=== PATIENT | female | born 1980 | race Caucasian/White ===

== ENCOUNTER 2017-01-06 05:05 | Inpatient (IN) | payer MEDICAID ==
[~2017-01-06] VITALS: Ht 144.8 cm; Wt 66.9 kg
[~2017-01-06 05:05] MED LIST: TRAM50TA2 PO
[2017-01-06 05:13] VITALS: Ht 144.8 cm; Wt 66.9 kg
[2017-01-06] MEDS ORDERED: CARBOPROST 250 MCG INJ IM PRN ×2 (05:30→14:30)
[2017-01-06] MEDS ORDERED: METHYLERGONOVINE 0.2 MG INJ IM PRN ×2 (05:30→14:30)
[2017-01-06] MEDS ORDERED: CEFAZOLIN 2 GM/50 ML (PMX) 50 ML IV SCH (05:30)
[2017-01-06] MEDS ORDERED: OXYTOCIN 30 UNITS/LR 500 ML IV PRN ×2 (05:30→14:30)
[2017-01-06] MEDS ORDERED: MISOPROSTOL 200 MCG TAB PR PRN ×2 (05:30→14:30)
[2017-01-06 05:52] LABS: ADD SCAN DIFF NO
[2017-01-06] MEDS: LACTATED RINGER'S 1,000 ML IV SCH ×2 (06:06→07:24)
[2017-01-06 06:16] LABS: INR 0.9; PROTIME 12.1 Sec (12.2-14.2); PT RATIO 0.9
[2017-01-06 06:17] LABS: PARTIAL THROMBOPLASTIN TIME 27.2 Sec (25.0-35.0)
[2017-01-06 06:20] LABS: ABNORMAL IP MESSAGE 1; BASOPHILS % 0.3 % (0.0-2.0); EOSINOPHILS % 0.4 % (0.0-7.0); HEMATOCRIT 26.7 % (37.0-47.0); HEMOGLOBIN 8.1 g/dl (12.0-16.0); LYMPHOCYTES # 2.2 10^3/ul (0.8-2.9); LYMPHOCYTES % 31.7 % (15.0-51.0); MEAN CORPUSCULAR HEMOGLOBIN 26.4 pg (29.0-33.0); MEAN CORPUSCULAR HGB CONC 30.3 g/dl (32.0-37.0); MONOCYTE # 0.5 10^3/ul (0.3-0.9); MONOCYTES % 6.6 % (0.0-11.0); NEUTROPHIL # 4.2 10^3/ul (1.6-7.5); NEUTROPHILS % 60.7 % (39.0-77.0); NUCLEATED RED BLOOD CELLS% 0.3 /100WBC (0.0-0.0); PLATELET COUNT 115 10^3/UL (140-415); RED BLOOD COUNT 3.07 10^6/ul (4.20-5.40); RED CELL DISTRIBUTION WIDTH 15.9 % (11.5-14.5); WHITE BLOOD COUNT 6.9 10^3/ul (4.8-10.8)
[2017-01-06] MEDS ORDERED: morphine SULFATE/PF (10 MG/10 ML) INJ ONE (08:04)
[2017-01-06] MEDS ORDERED: PHENYLephrine (100 MCG/ML) 5ML SYG ONE (08:04)
[2017-01-06] MEDS ORDERED: ONDANSETRON 4 MG INJ ONE ×2 (08:04→08:54)
[2017-01-06] MEDS ORDERED: OXYTOCIN 10 UNIT INJ ONE (08:04)
--- NOTE | 2017-01-06 08:32 | HP ---
Date/Time of Note Date/Time of Note DATE: 01/06/17 TIME: 08:23 OB - History Hx of Present Free Text/Dictation 36 years old female 5 para 3 history of 3 previous section one inducible with a EDC of January 11, 2017 admitted to [facility] at 39 weeks and 2 days for repeat section for the fourth time. This patient has been under the care of the [facility] and her was complicated with gestational diabetes and recently diagnosed mild -induced hypertension for that reason complete workup for PIH has been ordered plan pending the result if abnormal magnesium sulfate for seizure prevention will be considered Estimated Due Date: January 11, 2017 : 5 Para: 3 Therapeutic : 1 Care: Good Care Ultrasounds: Normal mid trimester US Obstetrical Complications: Gestational Diabetes, Pre-eclampsia Past Family/Social History * Past Medical, Surgical, Family and Obstetric Histories reviewed from chart. Rubella: immune RPR/VDRL: Negative GBS Status: Negative HBsAG: Negative OB Admission Exam Physical Exam HEENT: WNL Heart: Rhythm Normal Lungs: Clear, Equal Abdomen: WNL Extremities: Normal Reflexes: Normal Cervical Dilatation: None Effacement: 0% Station: -2 Membranes: Intact Heart Rate: 130's Accelerations: Accelerations Present Decelerations: No Decelerations Varibility: Moderate Contractions on Admission: None Last 72 hours Lab Results CBC & BMP 01/06/17 05:45 OB Assessment/Plan Reason for admission: section Plan: Section MARIANNA ALMARAZ MD January 06, 2017 08:32
[2017-01-06 08:50] LABS: ALBUMIN/GLOBULIN RATIO 0.93; BILIRUBIN,INDIRECT 0.2 mg/dl (0-1.1); BILIRUBIN,TOTAL 0.2 mg/dl (0.2-1.3); CALCIUM 8.1 mg/dl (8.4-10.2); CREATININE 0.62 mg/dl (0.44-1.00); POTASSIUM 3.8 mmol/L (3.5-5.1); TOTAL PROTEIN 6.2 g/dl (6.1-8.1); URIC ACID 5.2 mg/dl (3.1-7.9)
[2017-01-06] MEDS ORDERED: METOCLOPRAMIDE 10 MG INJ ONE (08:54)
[2017-01-06] MEDS ORDERED: FENTAnyl 50 MCG/ML VIAL ONE (08:55)
[2017-01-06 09:30] LABS: ADD UMIC YES; URINE BILIRUBIN (Dip) NEGATIVE (NEGATIVE); URINE BLOOD (Dip) 1+ (NEGATIVE); URINE COLOR LT. YELLOW (YELLOW); URINE GLUCOSE (Dip) NEGATIVE (NEGATIVE); URINE KETONES (Dip) NEGATIVE (NEGATIVE); URINE LEUKOCYTE ESTERASE (Dip) NEGATIVE (NEGATIVE); URINE NITRITE (Dip) NEGATIVE (NEGATIVE); URINE TOTAL PROTEIN (Dip) NEGATIVE (NEGATIVE); URINE UROBILINOGEN (Dip) 0.2 E.U./dL (0.1-1.0)
[2017-01-06] MEDS: OXYTOCIN 30 UNITS/LR 500 ML IV SCH ×5 (09:52→22:52)
[2017-01-06 10:00] LABS: BACTERIA,URINE RARE; URINE RBCS 0-2 /HPF (0)
[2017-01-06] MEDS ORDERED: morphine 2 MG INJ IV PRN (10:00)
[2017-01-06] MEDS ORDERED: DIPHENHYDRAMINE 50 MG INJ IV PRN (10:00)
[2017-01-06] MEDS ORDERED: NALOXONE (0.4 MG/ML) INJ IV PRN (10:00)
[2017-01-06] MEDS: KETOROLAC 30 MG INJ IV PRN (10:20)
[2017-01-06] MEDS: ONDANSETRON 4 MG INJ IV PRN ×2 (11:00→13:00)
--- NOTE | 2017-01-06 11:09 | OPR ---
DATE OF OPERATION: 01/06/2017 PREOPERATIVE DIAGNOSES: Intrauterine at 39 weeks and 2 days, history of 3 previous sections. POSTOPERATIVE DIAGNOSES: Intrauterine at 39 weeks and 2 days, history of 3 previous sections. OPERATION PERFORMED: Repeat transverse low cervical section for the 4th time. SURGEON: Marianna Boykin MD DATA DESIGNER: Sandra Perez MD ANESTHESIA: Spinal. ANESTHESIOLOGIST: Dr. Perez. FINDINGS: Live baby girl with 8 and 9. DETAILS OF THE PROCEDURE: Under satisfactory spinal anesthesia, the patient was prepped and draped and placed in supine position, tilted to the left. Pfannenstiel incision was made, incision carried through the subcutaneous tissue. Bleeders brought under control with electrocautery. Fascia incis ed to the length of the incision. Rectus muscle divided in midline. Peritoneum exposed, entered th rough a transverse incision. Exploration of abdomen, gravid uterus with extremely thinned out lower segment of the uterus to the thickness of 1 to 2 mm. Bladder flap was developed. Transverse incis ion was made in the lower segment of the uterus. Amniotic sac ruptured. Clear amniotic fluid noted . Live baby girl was delivered from unengaged vertex. Nasal oropharyngeal suction was performed. Baby handed to the team for immediate attention. The patient received 20 units of Pitocin. Placenta delivered manually intact. Uterine cavity cleaned with wet sponge and drainage establish ed. Uterus closed in 2 layers using Monocryl #1 in continuous fashion. Peritoneal cavity irrigated with warm saline. Sponge, needle and instrument reported to be correct. Abdominal peritoneum clos ed with 2-0 chromic catgut continuously. Rectus muscle approximated with few interrupted 2-0 chromi c catgut. Fascia closed with #1 PDS in a continuous fashion. Subcutaneous tissue approximated with few interrupted 2-0 chromic catgut. Skin closed with stormy. Estimated blood loss 600 mL. Urine bag contained 200 mL of clear urine. Patient tolerated procedure well, transferred to [facility] in a good condition. Dictated By: MARIANNA BOYKIN MD HF/NTS Conf#: [id number] DID#: [id number] CC: SANDRA PEREZ MD;*EndCC*
[2017-01-06] MEDS ORDERED: METOCLOPRAMIDE 10 MG INJ IV ONE (11:30)
[2017-01-06] MEDS ORDERED: CEFAZOLIN 1 GM/50 ML (PMX) 50 ML IVPB SCH ×2 (14:30→16:30)
[2017-01-06] MEDS ORDERED: OXYCODONE/ACETAMINOPHEN (5/325) TAB PO PRN (14:30)
[2017-01-06] MEDS ORDERED: LANOLIN 7 GM TUBE TOP PRN (14:30)
[2017-01-06] MEDS ORDERED: ACETAMINOPHEN/CODEINE #3 TAB PO PRN (14:30)
[2017-01-06 14:40] VITALS: BP 131/75; PULSE 52; RESP 16
[2017-01-06 16:00] VITALS: BP 136/69; PULSE 51; RESP 16
[2017-01-06 19:55] VITALS: BP 129/67; PULSE 69; RESP 19
[2017-01-06] MEDS: SENNA/DOCUSATE NA (8.6MG/50MG) TAB PO SCH (21:28)
[2017-01-07] VITALS (10 sets, daily range): BP systolic 110–130; BP diastolic 55–72; PULSE 53–67; RESP 17–20
[2017-01-07] MEDS: OXYTOCIN 30 UNITS/LR 500 ML IV SCH ×2 (02:04→05:58)
[2017-01-07] MEDS ORDERED: LACTATED RINGER'S 1,000 ML IV SCH (03:00)
[2017-01-07] MEDS: KETOROLAC 30 MG INJ IV PRN (07:58)
[2017-01-07 08:02] LABS: ADD SCAN DIFF NO
[2017-01-07 08:07] LABS: ABNORMAL IP MESSAGE 1; HEMATOCRIT 19.8 % (37.0-47.0); MEAN CORPUSCULAR HEMOGLOBIN 27.4 pg (29.0-33.0); MEAN CORPUSCULAR HGB CONC 31.3 g/dl (32.0-37.0); MEAN CORPUSCULAR VOLUME 87.6 fl (82.0-101.0); MEAN PLATELET VOLUME 13.1 fl (7.4-10.4); PLATELET COUNT 99 10^3/UL (140-415); RED BLOOD COUNT 2.26 10^6/ul (4.20-5.40)
[2017-01-07 08:18] LABS: HEMOGLOBIN 6.2 g/dl (12.0-16.0)
[2017-01-07] MEDS: SENNA/DOCUSATE NA (8.6MG/50MG) TAB PO SCH ×2 (09:18→21:17)
--- NOTE | 2017-01-07 09:51 | QN ---
Documentation Comment Post day 1 Afebrile vital signs are stable abdomen soft bowel sounds lochia moderate incision extremities ambulation recommended MARIANNA ALMARAZ MD January 07, 2017 09:51
--- NOTE | 2017-01-07 10:11 | QN ---
Documentation Comment This patient had a hemoglobin of 8gm on admission, hemoglobin went down to 6gm. hematocrit 19 .8 she looks pale, tired and lethargic transfusion benefits and risks discussed with the patient she agreed to receive the blood transfusion MARIANNA ALMARAZ MD January 07, 2017 10:11
[2017-01-07 11:16] LABS: LYMPHOCYTES # 1.1 10^3/ul (0.8-2.9); MONOCYTE # 0.1 10^3/ul (0.3-0.9); NEUTROPHIL # 7.4 10^3/ul (1.6-7.5)
[2017-01-07 11:17] LABS: MICROCYTOSIS 1+; POLYCHROMASIA 1+
[2017-01-07] MEDS: IBUPROFEN 600 MG TAB PO SCH ×3 (12:13→23:29)
[2017-01-07] MEDS: OXYCODONE/ACETAMINOPHEN (5/325) TAB PO PRN (17:17)
[2017-01-08] VITALS (17 sets, daily range): BP systolic 128–179; BP diastolic 55–96; PULSE 49–79; RESP 18–21
[2017-01-08] MEDS: IBUPROFEN 600 MG TAB PO SCH ×3 (06:05→17:24)
[2017-01-08 08:14] LABS: ADD SCAN DIFF NO
[2017-01-08] MEDS: ACETAMINOPHEN/CODEINE #3 TAB PO PRN ×2 (08:15→11:40)
[2017-01-08] MEDS: SENNA/DOCUSATE NA (8.6MG/50MG) TAB PO SCH ×2 (08:16→21:23)
[2017-01-08 08:27] LABS: ABNORMAL IP MESSAGE 1; BASOPHILS % 0.2 % (0.0-2.0); EOSINOPHILS # 0.1 10^3/ul (0.0-0.5); EOSINOPHILS % 0.6 % (0.0-7.0); HEMATOCRIT 33.4 % (37.0-47.0); HEMOGLOBIN 10.9 g/dl (12.0-16.0); LYMPHOCYTES # 1.7 10^3/ul (0.8-2.9); LYMPHOCYTES % 14.9 % (15.0-51.0); MEAN CORPUSCULAR HEMOGLOBIN 27.9 pg (29.0-33.0); MEAN CORPUSCULAR HGB CONC 32.6 g/dl (32.0-37.0); MEAN CORPUSCULAR VOLUME 85.4 fl (82.0-101.0); MEAN PLATELET VOLUME 13.5 fl (7.4-10.4); MONOCYTE # 0.7 10^3/ul (0.3-0.9); NEUTROPHIL # 8.7 10^3/ul (1.6-7.5); NEUTROPHILS % 77.7 % (39.0-77.0); PLATELET COUNT 112 10^3/UL (140-415); RED BLOOD COUNT 3.91 10^6/ul (4.20-5.40); RED CELL DISTRIBUTION WIDTH 15.9 % (11.5-14.5); WHITE BLOOD COUNT 11.2 10^3/ul (4.8-10.8)
[2017-01-08 14:22] LABS: WHITE BLOOD COUNT 8.7 10^3/ul (4.8-10.8)
[2017-01-08] MEDS: LABETALOL 100 MG TAB PO SCH (16:12)
[2017-01-08] MEDS: OXYCODONE/ACETAMINOPHEN (5/325) TAB PO PRN (23:04)
[2017-01-09] MEDS: IBUPROFEN 600 MG TAB PO SCH ×3 (00:19→14:17)
--- NOTE | 2017-01-09 01:13 | PN ---
Date/Time of Note Date/Time of Note DATE: 01/09/17 TIME: 01:12 OB Subjective Subjective Subjective afebrile vss abd.soft ns present no bm ext normal MARIANNA ALMARAZ MD January 09, 2017 01:13
[2017-01-09 04:06] VITALS: BP 149/72; PULSE 57; RESP 18
[2017-01-09 08:10] VITALS: BP 159/85; PULSE 54; RESP 20
[2017-01-09] MEDS: LABETALOL 100 MG TAB PO SCH (08:12)
[2017-01-09] MEDS: ACETAMINOPHEN/CODEINE #3 TAB PO PRN (08:13)
[2017-01-09] MEDS: SENNA/DOCUSATE NA (8.6MG/50MG) TAB PO SCH (08:13)
[2017-01-09] MEDS ORDERED: DIPHTH/TET/ACEL PERTUSS (ADULT) 0.5 ML VIAL IM* ONE (09:00)
[2017-01-09 09:41] VITALS: BP 153/74; PULSE 54; RESP 20
[2017-01-09 13:16] VITALS: BP 132/79; RESP 20
--- NOTE | 2017-01-09 14:09 | DS ---
Date/Time of Note Date/Time of Note DATE: 01/09/17 TIME: 14:09 Obstetrical Discharge Record Final Diagnosis Final Diagnosis: Term delivered Section Section: Repeat Condition on Discharge Physical Assessment Last Vitals: See PN Patient Condition: Stable MEGAN AUGUSTE January 09, 2017 14:09
--- NOTE | 2017-01-09 14:09 | PN ---
Date/Time of Note Date/Time of Note DATE: 01/09/17 TIME: 14:07 OB Subjective Subjective Subjective Patient without complaints. OB Objective Objective Objective Gen: NAD Abd: I-C/D/I with stormy OB Assessment/Plan Reason for admission: section Other Assessment: s/p repeat Other plan: POD3 -discharge home -pelvic rest, no heavy lifting -rx for pain meds -f/u with OB clinic for staple removal and care MEGAN AUGUSTE January 09, 2017 14:09
== END 2017-01-09 16:16 | disposition home or self-care (01) | DRG 766 ==
LOC: L-D 05:05 → PP1 14:52
PROVIDERS: ADMIT Obstetrics & Gynecology; ATTEND Obstetrics & Gynecology
PROC: 3E00X4Z Introduction of Serum, Toxoid and Vaccine into Skin and Mucous Membranes, External Approach (ICD-10-PCS; 2017-01-06)
PROC: 10D00Z1 Extraction of Products of Conception, Low, Open Approach (ICD-10-PCS; principal; 2017-01-06 07:30)
DX: O34.211 Maternal care for low transverse scar from previous cesarean delivery (principal); O14.04 Mild to moderate pre-eclampsia, complicating childbirth; O24.429 Gestational diabetes mellitus in childbirth, unspecified control; Z23 Encounter for immunization; Z3A.39 39 weeks gestation of pregnancy; Z37.0 Single live birth
CPT/HCPCS: 36430; 80053; 81001; 81003; 82962; 84560; 85025; 85610; 85730; 86592; 86850; 86900; 86901; 86920; 87340; 90715; 94760; 99464; J0690; J1200; J1885; J2274; J2370; J2405; J2590; J2765; J3010; J7120; P9016

== ENCOUNTER 2017-01-17 15:20 | Emergency (ER) | payer MEDICAID ==
[~2017-01-17] VITALS: Ht 152.4 cm; Wt 54.5 kg
[2017-01-17 15:22] VITALS: Ht 152.4 cm; Wt 54.5 kg
--- NOTE | 2017-01-17 16:51 | ERA ---
ER Documentation Chief Complaint Date/Time DATE: 01/17/17 TIME: 16:49 Chief Complaint sent by pcp - for evaluation , high bp HPI 36-year-old female who is 10 days status post who presents with elevated blood pressure lightheadedness and dizziness. She was sent from primary care physician for evaluation of elevated blood pressure. Patient denies any chest pain or shortness of breath. No numbness or tingling. Net Ui Developer used. ROS All systems reviewed and are negative except as per history of present illness. Medications Home Meds Active Scripts Tramadol HCl (Tramadol HCl) 50 Mg Tablet, 50 MG PO Q4 Y for PAIN, #10 TAB Prov:MIRIAM VOSS PA-C 03/22/16 Allergies Allergies: Coded Allergies: latex (Verified Allergy, Severe, rash, 01/06/17) No Known Allergies (Verified Allergy, Unknown, 01/05/17) PMhx/Soc History of Surgery: Yes ( x3) Anesthesia Reaction: No Hx Neurological Disorder: No Hx Respiratory Disorders: No Hx Cardiac Disorders: No Hx Psychiatric Problems: No Hx Miscellaneous Medical Probl: Yes (Gestational DM,Pre-Eclampsia,MRSA Skin Infection) Hx Alcohol Use: No Hx Substance Use: No Hx Tobacco Use: No FmHx Family History: No diabetes Physical Exam Vitals Vital Signs Date Time Temp Pulse Resp B/P Pulse Ox O2 Delivery O2 Flow Rate FiO2 01/17/17 15:22 98.0 75 19 176/95 99 Physical Exam General: Well developed, well nourished, no acute distress Head: Normocephalic, atraumatic. Eyes: Pupils equally reactive, EOM intact ENT: Moist mucous membranes Neck: Supple, no lymphadenopathy Respiratory: Lungs clear bilaterally, no distress Cardiovascular: RRR, no murmurs, rubs, or gallops Abdominal: Soft, non-tender, non-distended, no peritoneal signs : Deferred MSK: No edema, no unilateral swelling, 5/5 strength Neurologic: Alert and oriented, moving all extremities, normal speech, no focal weakness, no cerebellar signs Skin: No rash Psych: Normal mood Procedures/MDM MEDICAL DECISION MAKING: The patient presents to the emergency room with elevated blood pressure 10 days . This is very concerning and likely consistent with preeclampsia. I was immediately able to speak to Dr. Lechuga, on-call for labor and delivery. We discussed the case. I was about to initiate therapy but she states that the patient should be taken directly to L&D triage. I believe this is the best course of management for this patient with likely preeclampsia who requires close observation, magnesium, blood pressure control. The patient was emergently taken to L&D triage. I kept the patient and/or family informed of laboratory and diagnostic imaging results throughout the emergency room course. DISPOSITION PLAN: L&D triage for management of preeclampsia CONSULTATION: Accepting provider is Dr. Lechuga Departure Diagnosis: Primary Impression: Preeclampsia Qualified Code: O14.90 - Preeclampsia, unspecified trimester Condition: CHANELLE Curry MD January 17, 2017 16:51
== END 2017-01-17 17:43 | disposition home or self-care (01) ==
LOC: FTE 15:20
DX: O14.95 Unspecified pre-eclampsia, complicating the puerperium (principal)
CPT/HCPCS: 99282

== ENCOUNTER 2017-01-17 17:10 | Inpatient (IN) | payer MEDICAID ==
[~2017-01-17] VITALS: Ht 149.9 cm; Wt 54.5 kg
[2017-01-17 17:42] VITALS: BP 159/89; PULSE 50; RESP 16; Ht 149.9 cm; Wt 54.5 kg
[2017-01-17] MEDS ORDERED: CA GLUCONATE (GM) 10% 10ML INJ IV PRN (18:00)
[2017-01-17] MEDS ORDERED: MAGNESIUM SULFATE 4 GM/100 ML 100 ML IV ONE (18:00)
[2017-01-17 18:03] LABS: ADD SCAN DIFF NO
[2017-01-17 18:05] LABS: BASOPHILS % 0.4 % (0.0-2.0); EOSINOPHILS # 0.1 10^3/ul (0.0-0.5); EOSINOPHILS % 0.8 % (0.0-7.0); HEMATOCRIT 40.5 % (37.0-47.0); HEMOGLOBIN 13.3 g/dl (12.0-16.0); LYMPHOCYTES % 19.6 % (15.0-51.0); MEAN CORPUSCULAR HEMOGLOBIN 28.4 pg (29.0-33.0); MEAN CORPUSCULAR HGB CONC 32.8 g/dl (32.0-37.0); MEAN CORPUSCULAR VOLUME 86.4 fl (82.0-101.0); MEAN PLATELET VOLUME 11.2 fl (7.4-10.4); MONOCYTE # 0.4 10^3/ul (0.3-0.9); MONOCYTES % 3.9 % (0.0-11.0); NEUTROPHIL # 7.7 10^3/ul (1.6-7.5); NEUTROPHILS % 74.9 % (39.0-77.0); PLATELET COUNT 303 10^3/UL (140-415); RED BLOOD COUNT 4.69 10^6/ul (4.20-5.40); RED CELL DISTRIBUTION WIDTH 15.3 % (11.5-14.5); WHITE BLOOD COUNT 10.3 10^3/ul (4.8-10.8)
--- NOTE | 2017-01-17 18:08 | HP ---
Date/Time of Note Date/Time of Note DATE: 01/17/17 TIME: 17:56 OB - History Hx of Present Free Text/Dictation Patient is a 36-year-old status post repeat on July 09, 2017 presents to the emergency room with elevated blood pressures of 170s over 90s, positive headache, positive blurry vision. Patient does not complain of any shortness of breath or chest pain She states that her was uneventful and she did not require any blood pressure medications during her or the immediate Patient received her care at [facility] Patient's OB history significant for 4 Chief Complaint: Positive headaches, positive blurry vision : 5 Para: 4 Care: Good Care Past Family/Social History * Past Medical, Surgical, Family and Obstetric Histories reviewed from chart. OB Admission Exam Vital Signs Vital Signs Vital Signs Date Time Temp Pulse Resp B/P Pulse Ox O2 Delivery O2 Flow Rate FiO2 01/17/17 17:42 98.5 50 16 159/89 96 Room Air Physical Exam HEENT: WNL Heart: Rhythm Normal Lungs: Clear, Equal Abdomen: WNL Extremities: Normal Reflexes: Hyperreflexia Present OB Assessment/Plan Other Assessment: suspected for preeclampsia Other plan: We will obtain PIH labs, UA Start magnesium sulfate for seizure prophylaxis We will consider Labetalol IV push if necessary for uncontrolled blood pressures Tylenol as needed for headache We will monitor the patient in labor and delivery for several hours and once stable will transfer to antepartum unit Copies To: CC: MARIANNA ALMARAZ MD, BAHAREH MD January 17, 2017 18:07
[2017-01-17 18:10] LABS: ADD UMIC YES; URINE BILIRUBIN (Dip) NEGATIVE (NEGATIVE); URINE BLOOD (Dip) TRACE (NEGATIVE); URINE COLOR LT. YELLOW (YELLOW); URINE GLUCOSE (Dip) NEGATIVE (NEGATIVE); URINE KETONES (Dip) NEGATIVE (NEGATIVE); URINE LEUKOCYTE ESTERASE (Dip) NEGATIVE (NEGATIVE); URINE NITRITE (Dip) NEGATIVE (NEGATIVE); URINE TOTAL PROTEIN (Dip) NEGATIVE (NEGATIVE); URINE UROBILINOGEN (Dip) 0.2 E.U./dL (0.1-1.0)
[2017-01-17] MEDS: LACTATED RINGER'S 1,000 ML IV SCH (18:14)
[2017-01-17 18:18] LABS: URINE RBCS NONE SEEN /HPF (0)
[2017-01-17 18:20] LABS: INR 0.91; PROTIME 12.3 Sec (12.2-14.2)
[2017-01-17] MEDS: ACETAMINOPHEN 325 MG TAB PO PRN (18:20)
[2017-01-17 18:21] LABS: PARTIAL THROMBOPLASTIN TIME 29.2 Sec (25.0-35.0)
[2017-01-17 18:23] LABS: ALBUMIN 3.8 g/dl (3.3-4.9); ALBUMIN/GLOBULIN RATIO 0.97; CREATININE 0.51 mg/dl (0.44-1.00); TOTAL PROTEIN 7.7 g/dl (6.1-8.1); URIC ACID 4.4 mg/dl (3.1-7.9)
[2017-01-17 18:24] LABS: CALCIUM 9.1 mg/dl (8.4-10.2)
[2017-01-17] MEDS: MAGNESIUM SULFATE 20 GM/500 ML 500 ML IV SCH (18:41)
[2017-01-18] MEDS: MAGNESIUM SULFATE 20 GM/500 ML 500 ML IV SCH (03:58)
[2017-01-18] MEDS: LACTATED RINGER'S 1,000 ML IV SCH (04:04)
[2017-01-18] MEDS: ACETAMINOPHEN 325 MG TAB PO PRN ×2 (07:15→11:14)
--- NOTE | 2017-01-18 11:21 | QN ---
Documentation Comment This is a patient 11 days post repeat was admitted by the laborist , suspected PIH, due to elevated blood pressure and headache, today when I visited the pain she was resting in bed and complaining of headache while had acetaminophen at 7 AM for the headache, all her laboratory results for PIH are negative, her urine protein his negative, her magnesium level is 6.9 we discontinued the magnesium sulfate if the headache does not resolve by acetaminophen will consider neurology consult. MARIANNA ALMARAZ MD January 18, 2017 11:21
--- NOTE | 2017-01-19 17:35 | PDOCDIS ---
Discharge Instructions CONDITION Patient Condition: Good ACTIVITY: Activity Restrictions: Rest between Activity No Sexual Activity Do not operate Machinery Do not operate Power Tool Avoid Heavy Housework Bathing Restrictions: Shower FOLLOW UP/APPOINTMENTS Appointments appointment clinic in 2 days to check bp REFERRALS Other Referrals MARIANNA Acosta MD January 19, 2017 17:35
--- NOTE | 2017-01-19 17:40 | DS ---
Date/Time of Note Date/Time of Note DATE: 01/19/17 TIME: 17:36 Discharge Summary Admission/Discharge Info Admit Date/Time January 17, 2017 at 17:10 Discharge Date/Time January 19 at 1800 Final Diagnosis hypertension Patient Condition: Good Procedures Observation to monitor blood pressure Hx of Present Illness 10 days patient had elevated blood pressure at the clinic was sent to the hospital for evaluation Hospital Course Satisfactory patient's blood pressure in the hospital 120s 130s over 60s and 70s only one occasion 144/88 has been the highest blood pressure since the patient has been in the hospital Home Meds Active Scripts Tramadol HCl (Tramadol HCl) 50 Mg Tablet, 50 MG PO Q4 Y for PAIN, #10 TAB Prov:MIRIAM VOSS PA-C 03/22/16 Follow-up Plan To be seen at the clinic a.m. to monitor blood pressure Primary Care Provider Care Physician No Primary Time spent on discharge: < 30 minutes MARIANNA ALMARAZ MD January 19, 2017 17:40
== END 2017-01-19 18:19 | disposition home or self-care (01) | DRG 776 ==
LOC: L-D 17:10 → OBG 21:00
PROVIDERS: ADMIT Obstetrics & Gynecology; ATTEND Obstetrics & Gynecology
DX: O16.5 Unspecified maternal hypertension, complicating the puerperium (principal)
CPT/HCPCS: 80053; 81001; 81003; 83735; 84560; 85025; 85384; 85610; 85730; J3475; J7120

== ENCOUNTER 2017-03-28 20:37 | Emergency (ER) | payer MEDICAID ==
[~2017-03-28] VITALS: Ht 152.4 cm; Wt 56.5 kg
[2017-03-28 20:38] VITALS: Ht 152.4 cm; Wt 56.5 kg
--- NOTE | 2017-03-28 21:11 | ERD ---
ER Documentation Chief Complaint Date/Time DATE: 03/28/17 TIME: 21:09 Chief Complaint R BREAST PAIN FROM BREAST FEEDING HPI 36-year-old female presents to emergency department for complaint of redness and swelling of the right breast area for 3 days, patient is breast-feeding, has the right breast engorged at times. Patient complained of pain throbbing pain 6/10 scale, worse upon touching the area. Patient denies any discharge coming from the area. Patient denies fever or chills. ROS All systems reviewed and are negative except as per history of present illness. Medications Home Meds No Active Prescriptions or Reported Meds Allergies Allergies: Coded Allergies: latex (Verified Allergy, Severe, rash, 01/06/17) No Known Allergies (Verified Allergy, Unknown, 01/05/17) PMhx/Soc History of Surgery: Yes ( x3) Anesthesia Reaction: No Hx Neurological Disorder: No Hx Respiratory Disorders: No Hx Cardiac Disorders: No Hx Psychiatric Problems: No Hx Miscellaneous Medical Probl: Yes (Gestational DM,Pre-Eclampsia,MRSA Skin Infection) Hx Alcohol Use: No Hx Substance Use: No Hx Tobacco Use: No Smoking Status: Never smoker FmHx Family History: No coronary disease, No diabetes, No other Physical Exam Vitals Vital Signs Date Time Temp Pulse Resp B/P Pulse Ox O2 Delivery O2 Flow Rate FiO2 03/28/17 20:38 97.6 66 18 109/58 96 Physical Exam GENERAL: The patient is well developed and appropriate for usual state of health, in no apparent distress. CHEST: Clear to auscultation bilaterally. There are no rales, wheezes or rhonchi. Noted right breast erythema surrounding the right lower quadrant of the breast area, no purulent discharge noted, no deformity noted, no fluctuance noted. Mild tenderness on palpation. HEART: Regular rate and rhythm. No murmurs, clicks, rubs or gallops. No S3 or S4. ABDOMEN: Soft, nontender and nondistended. Good bowel sounds. No rebound or guarding. No gross peritonitis. No gross organomegaly or masses. No Mccord sign or McBurney point tenderness. BACK: No midline or flank tenderness. EXTREMITIES: Equal pulses bilaterally. There is no peripheral clubbing, cyanosis or edema. No focal swelling or erythema. Full range of motion. Grossly neurovascularly intact. NEURO: Alert and oriented. Cranial nerves 2-12 intact. Motor strength in all 4 extremities with 5/5 strength. Sensation grossly intact. Normal speech and gait. SKIN: There is no apparent rash or petechia. The skin is warm and dry. HEMATOLOGIC AND LYMPHATIC: There is no evidence of excessive bruising or lymphedema. No gross cervical, axillary, or inguinal lymphadenopathy. Procedures/MDM Medical decision making: Patient symptoms like it consistent with an early form of mastitis. No symptoms of any abscess at this time. The symptoms of sepsis at this time. Patient presents hemodynamically stable. No palpable tumor at this time. Prescription was given for Keflex ibuprofen for pain, was advised to follow with primary care doctor in 2-3 days for reevaluation of symptoms. Patient is advised to return to emergency department for any worsening symptoms. Patient was advised to apply warm compresses on affected area. Departure Diagnosis: Primary Impression: Mastitis Condition: Stable Patient Instructions: Mastitis Additional Instructions: . Prescription was given for Keflex ibuprofen for pain, was advised to follow with primary care doctor in 2-3 days for reevaluation of symptoms. Patient is advised to return to emergency department for any worsening symptoms. Patient was advised to apply warm compresses on affected area. JESS FLORES NP Mar 28, 2017 21:11
[2017-03-28] MEDS ORDERED: CEPH-443 PO (21:12)
[2017-03-28] MEDS ORDERED: IBUP-1542 PO (21:12)
== END 2017-03-28 21:32 | disposition home or self-care (01) ==
LOC: FTE 20:37
DX: N61.0 Mastitis without abscess (principal); Z91.040 Latex allergy status
CPT/HCPCS: 99283